=== PATIENT | female | born 1940 | race Caucasian/White ===

== ENCOUNTER 2023-06-24 16:44 | Emergency (ER) | payer OTHER ==
[~2023-06-24] VITALS: Ht 160 cm; Wt 70.3 kg
[2023-06-24 16:49] VITALS: BP 134/67; PULSE 81; RESP 20; TEMP 98; O2SAT 99
[2023-06-24] MEDS: ACETAMINOPHEN EXTRA STRENGTH 500 MG TAB PO ONE (17:15)
== END 2023-06-24 20:45 | disposition home or self-care (01) ==
LOC: MED 16:44
DX: S01.111A Laceration without foreign body of right eyelid and periocular area, initial encounter (principal); Z79.899 Other long term (current) drug therapy; W18.30XA Fall on same level, unspecified, initial encounter; Y93.89 Activity, other specified; Y92.89 Other specified places as the place of occurrence of the external cause; Y99.8 Other external cause status
CPT/HCPCS: 70450; 99284